=== PATIENT | female | born 1990 | race American Indian/Alaskan Native ===

== ENCOUNTER 2021-08-06 10:21 | Emergency (ER) | payer BC ==
[2021-08-06] MEDS ORDERED: KETOROLAC 30 MG/1 ML INJ IV ONE (10:54)
[2021-08-06] MEDS ORDERED: HYDROmorphone 1 MG/1 ML INJ IV ONE (10:54)
[2021-08-06] MEDS ORDERED: ETOMIDATE 20 MG/10 ML INJ IV ONE (11:32)
[2021-08-06] MEDS ORDERED: HYDROmorphone 1 MG/1 ML INJ ONE (11:40)
--- NOTE | 2021-08-06 11:45 | XRay Report ---
RIGHT ANKLE 3 VIEWS INDICATION / CLINICAL INFORMATION: angle injury COMPARISON: None available. FINDINGS: BONES / JOINT(S): Spiral fracture involving the distal fibula. The tibia is dislocated medially. The medial malleolus and talus are intact. No significant arthritis. SOFT TISSUES: Underlying soft tissue swelling. ADDITIONAL FINDINGS: None. Signer Name: William Hairston MD Signed: 08/06/2021 11:40 AM Workstation Name: [id number]
[2021-08-06] MEDS ORDERED: SODIUM CHLORIDE 0.9% 1000 ML 1,000 ML ONE (12:15)
[2021-08-06 12:35] VITALS: BP 154/79
--- NOTE | 2021-08-06 12:49 | Emergency Department Report ---
ED Extremity Problem HPI - General Chief complaint: Extremity Injury, Lower Stated complaint: RT ANKLE PAIN Time Seen by Provider: 08/06/21 10:53 Source: patient Mode of arrival: Stretcher Limitations: No Limitations - History of Present Illness Initial comments: Patient is a 30-year-old F Georgian female who was walking her dog this morning and some wet grass and she slipped and fell. Patient injured her right ankle. There was some obvious deformity present she was unable to bear any weight afterwards. Patient states the pain is a 10 out of 10 in severity. Worse with any movement of the leg better with rest. Denies any other injury at this time. Patient received 100 a fentanyl for morphine prior to arrival. Patient still in significant pain. Severity scale (0 -10): 10 - Related Data Previous Rx's Medication Instructions Recorded Last Taken Type hydrOXYzine PAMOATE [Vistaril] 25 mg PO Q6HR PRN #12 capsule 05/14/20 Unknown Rx HYDROcodone/APAP 5-325 [Clarkia 1 each PO Q6HR PRN #14 tablet 08/06/21 Unknown Rx 5/325] Ketorolac [Toradol] 10 mg PO Q6H PRN #20 tablet 08/06/21 Unknown Rx methOCARBAMOL [Robaxin TAB] 500 mg PO Q6H PRN #14 tablet 08/06/21 Unknown Rx Allergies Allergy/AdvReac Type Severity Reaction Status Date / Time No Known Allergies Allergy Unverified 05/14/20 07:42 ED Review of Systems ROS: Stated complaint: RT ANKLE PAIN Other details as noted in HPI Comment: All other systems reviewed and negative ED Past Medical Hx - Past Medical History Previous Medical History?: No - Surgical History Past Surgical History?: No - Social History Smoking Status: Unknown if ever smoked Substance Use Type: None - Medications Home Medications: Home Medications Medication Instructions Recorded Confirmed Last Taken Type hydrOXYzine PAMOATE [Vistaril] 25 mg PO Q6HR PRN #12 capsule 05/14/20 Unknown Rx HYDROcodone/APAP 5-325 [Clarkia 1 each PO Q6HR PRN #14 tablet 08/06/21 Unknown Rx 5/325] Ketorolac [Toradol] 10 mg PO Q6H PRN #20 tablet 08/06/21 Unknown Rx methOCARBAMOL [Robaxin TAB] 500 mg PO Q6H PRN #14 tablet 08/06/21 Unknown Rx ED Physical Exam - General Limitations: No Limitations General appearance: alert, in distress (Secondary to pain) - Head Head exam: Present: atraumatic, normocephalic - Eye Eye exam: Present: normal appearance - ENT ENT exam: Present: mucous membranes moist - Neck Neck exam: Present: normal inspection - Respiratory Respiratory exam: Present: normal lung sounds bilaterally. Absent: respiratory distress, wheezes, rales, rhonchi - Cardiovascular Cardiovascular Exam: Present: regular rate, normal rhythm. Absent: systolic murmur, diastolic murmur, rubs, gallop - GI/Abdominal GI/Abdominal exam: Present: soft, normal bowel sounds. Absent: distended, tenderness - Extremities Exam Extremities exam: Present: normal inspection - Expanded Lower Extremity Exam Right Upper Leg exam: Present: normal inspection, full ROM Knee exam: Present: normal inspection, full ROM Ankle exam: Present: tenderness, deformity - Back Exam Back exam: Present: normal inspection - Neurological Exam Neurological exam: Present: alert, oriented X3 - Psychiatric Psychiatric exam: Present: normal affect, normal mood - Skin Skin exam: Present: warm, dry, intact, normal color. Absent: rash ED Course Vital Signs 08/06/21 08/06/21 12:18 12:26 Temperature [ 98 F Pre-Procedure] Pulse Rate [ 92 H Intra-Procedure ] Pulse Rate [ 75 Post-Procedure] Pulse Rate [Pre 86 -Procedure] Respiratory 16 Rate [Intra- Procedure] Respiratory 16 Rate [Post- Procedure] Respiratory 16 Rate [Pre- Procedure] Blood Pressure 152/88 [Intra- Procedure] Blood Pressure 154/79 [Post-Procedure ] Blood Pressure 142/84 [Pre-Procedure] O2 Sat by Pulse 100 Oximetry O2 Sat by Pulse 100 Oximetry [ Intra-Procedure ] O2 Sat by Pulse 100 Oximetry [Post -Procedure] O2 Sat by Pulse 100 Oximetry [Pre- Procedure] - Moderate Sedation Indications: fracture/dislocation redu ASA Class: II Mallampati Airway Score: 2 Preparation: school bus monitor applied, pulse oximeter, capnometry used, supplemental O2 applied, suction/airway equipment at bedside, IV secured IV Etomidate Dose (mgs): 6 Complications: none Patient Tolerated Procedure: well - Orthopedic Joint Reduction Joint #1 Consent Obtained: written consent Time Out Performed: Yes Side: right Joint Reduction Location: ankle Analgesia: moderate sedation Shoulder Technique Used (if applicable): other (jazmín's used to lift the foot and ankle self reducued) Technique Used: direct manipulation Post-Reduction Neuro Exam: intact Post-Reduction Vascular Exam: intact Post Reduction X-Ray Obtained: No Splint Applied: Yes Patient Tolerated Procedure: well - Orthopedic Splinting/Casting Injury #1 Side: left Lower Extremity Injury Location: ankle Lower Extremity Immobilizer: posterior splint, stirrup splint Other Orthopedic Equipment: crutches ED Medical Decision Making - Radiology Data Patient: FADI BARRAZA MR#: [id number] : 1990 Acct:[id number] Age/Sex: 30 / F ADM Date: 08/06/21 Loc: ED Attending Dr: Ordering Physician: CHINO FRANCIS MD Date of Service: 08/06/21 Procedure(s): XR ankle 2V RT Accession Number(s): [id number] cc: CHINO FRANCIS MD Fluoro Time In Minutes: RIGHT ANKLE 3 VIEWS INDICATION / CLINICAL INFORMATION: angle injury COMPARISON: None available. FINDINGS: BONES / JOINT(S): Spiral fracture involving the distal fibula. The tibia is dislocated medially. The medial malleolus and talus are intact. No significant arthritis. SOFT TISSUES: Underlying soft tissue swelling. ADDITIONAL FINDINGS: None. Signer Name: William Hairston MD Signed: 08/06/2021 11:40 AM Workstation Name: [id number] - Medical Decision Making Patient is a 30-year-old F [place]ian female with a significant fracture dislocation to the right ankle. Images been sent to Dr. Zuniga with orthopedics and he will see the patient clinic. The fracture dislocation was reduced. Patient tolerated procedure well. Patient be discharged home with medication was pain control and fracture care. Critical care attestation.: If time is entered above; I have spent that time in minutes in the direct care of this critically ill patient, excluding procedure time. ED Disposition Clinical Impression: Fibula fracture Qualifiers: Encounter type: initial encounter Fibula location: distal Fracture type: closed Fracture morphology: torus Laterality: right Qualified Code(s): S82.821A - Torus fracture of lower end of right fibula, initial encounter for closed fracture Ankle dislocation Qualifiers: Encounter type: initial encounter Laterality: right Qualified Code(s): S93.04XA - Dislocation of right ankle joint, initial encounter Disposition: HOME / SELF CARE / HOMELESS Is pt being admited?: No Does the pt Need Aspirin: No Condition: Stable Instructions: Cast or Splint Care, Adult, [id number], Tibial and Fibular Fractures, Ankle Dislocation Referrals: LAMAR ZUNIGA MD [Staff Physician] - 3-5 Days Time of Disposition: 12:53
== END 2021-08-06 13:20 | disposition home or self-care (01) ==
LOC: ED 10:21
DX: S82.831A Other fracture of upper and lower end of right fibula, initial encounter for closed fracture (principal); S93.04XA Dislocation of right ankle joint, initial encounter; W19.XXXA Unspecified fall, initial encounter; Y93.89 Activity, other specified; Y92.89 Other specified places as the place of occurrence of the external cause; Y99.8 Other external cause status
CPT/HCPCS: 27840; 73600; 96374; 99284; J1170; J7030

== ENCOUNTER 2021-08-15 06:05 | Day surgery (SDC) | payer BC ==
[2021-08-15] MEDS ORDERED: LACTATED RINGERS 1,000 ML ONE (06:31)
[2021-08-15] MEDS ORDERED: BACTERIOSTATIC SODIUM CHLORIDE 0.9% 30 ML VIAL INFILTRATI ONE (06:31)
[2021-08-15] MEDS ORDERED: fentaNYL 100 MCG/2 ML INJ ONE (07:27)
[2021-08-15] MEDS ORDERED: LIDOCAINE MPF (2%) 20 MG/1 ML VIAL 5 ML ONE (07:27)
[2021-08-15] MEDS ORDERED: propofoL 200 MG/20 ML VIAL IV ONE (07:27)
--- NOTE | 2021-08-15 07:33 | Anesthesia Day of Surgery ---
Anesthesia Day of Surgery - Day of Surgery Patient Examined: Yes Patient H&P Reviewed: Yes Patient is NPO: Yes
--- NOTE | 2021-08-15 07:34 | Anesthesia Consultation ---
Anesthesia Consult and Med Hx Date of service: 08/15/21 - Airway Anesthetic Teeth Evaluation: Good ROM Head & Neck: Adequate Mental/Hyoid Distance: Adequate Mallampati Class: Class III Intubation Access Assessment: Probably Good - Pre-Operative Health Status ASA Pre-Surgery Classification: ASA2 Proposed Anesthetic Plan: General Nerve Block: Pop - Pulmonary Hx Smoking: No Hx Sleep Apnea: No (BIB PRE SCREEN LOW RISK) - Cardiovascular System Hx Hypertension: No - Central Nervous System Hx Psychiatric Problems: Yes (Anxiety/Panic d/o) - Hematic Hx Anemia: No Hx Sickle Cell Disease: No - Other Systems Hx Cancer: No Hx Obesity: Yes
[2021-08-15] MEDS ORDERED: dexAMETHasone 4 MG/ML VIAL ONE ×2 (07:36→10:51)
[2021-08-15] MEDS ORDERED: BUPIVACAINE/PF (0.5%) 5 MG/1 ML 30 ML VIAL INFILTRATI ONE (07:36)
[2021-08-15] MEDS ORDERED: MIDAZOLAM 5 MG/5 ML INJ MDV IV ONE (07:41)
[2021-08-15] MEDS ORDERED: MIDAZOLAM 2 MG/2 ML INJ IV NR (08:00)
[2021-08-15] MEDS ORDERED: ceFAZolin/STERILE WATER 2 GM/20 ML SYRINGE IV NR (08:00)
[2021-08-15] MEDS ORDERED: SODIUM CHLORIDE 0.9% IRRIG SOLN 2000 ML IR ONE (08:06)
[2021-08-15] MEDS ORDERED: PHENYLEPHRINE/NS 1,000 MCG/10 ML SYRINGE (OR USE) IV ONE (08:18)
[2021-08-15] MEDS ORDERED: fentaNYL 100 MCG/2 ML INJ IV SCH (08:30)
[2021-08-15] MEDS ORDERED: ONDANSETRON 4 MG/2 ML INJ IV PRN (08:30)
[2021-08-15] MEDS ORDERED: HYDROmorphone 1 MG/1 ML INJ IV PRN (08:30)
[2021-08-15] MEDS ORDERED: LACTATED RINGERS 1,000 ML IV SCH (08:30)
[2021-08-15] MEDS ORDERED: ePHEDrine SULFATE 50 MG/1 ML INJ ONE (08:57)
[2021-08-15] MEDS ORDERED: ONDANSETRON 4 MG/2 ML INJ ONE (09:14)
[2021-08-15] MEDS ORDERED: dexAMETHasone 20 MG/5 ML VIAL ONE (09:47)
--- NOTE | 2021-08-15 09:59 | Procedure Note ---
Date of procedure: 08/15/21 Pre-op diagnosis: Esthela Fracture-dislocation right ankle Post-op diagnosis: same Procedure: Open reduction internal fixation right distal fibula with repair of syndesmosis Procedure The patient was brought to the OR after being given a femoral nerve block for postop pain management, she was placed on the table as a supine position following induction with MAC anesthesia patient's right lower extremity was prepped and draped in the usual sterile manner a timeout procedure was done to identify the patient and the correct operative site. The leg was exsanguinated followed by inflation of the pneumatic tourniquet to 300 mm Hg. a lateral incision was made along the distal fibula distally and down sharply through skin and subcutaneous down to periosteum the fracture site was identified following manipulation of the fracture fragments a bone clamp was used to stabilize next a interfrag screw was used to stabilize the fracture. A 8-hole one third semitubular plate was was applied to the distal fibula under C-arm visualization the leg was stabilize with screws of various lengths including cortical and cancellus screws AP and lateral views were obtained on the table, next the ZipTight syndesmosis device was inserted using 3.2 drill bit through all four cortices followed by deployment of the fixation device. A mortise view showed good reduction at the syndesmosis and showed good reduction of the fracture and placement of the hardware next the wound was copiously irrigated with saline solution and was closed in a standard routine fashion for subcutaneous dressings were applied as well as a well-padded posterior mold patient tolerated the procedure complications Anesthesia: MAC, regional Surgeon: LAMAR GARAY (Brian Kincaid, 1st assist) Estimated blood loss: minimal Pathology: none Condition: stable Disposition: PACU
[2021-08-15] MEDS: HYDROmorphone 1 MG/1 ML INJ IV PRN ×3 (10:10→10:40)
--- NOTE | 2021-08-15 10:11 | XRay Report ---
RIGHT ANKLE 3 VIEWS 0854 INDICATION: Right Fibula fracture, Ankle dislocation Fluoroscopy time 0.2 minutes COMPARISON: 08/06/2021 FINDINGS: 3 intraoperative views were obtained showing internal fixation and reduction of the previou s dislocation. Satisfactory reduction is noted. There is mild widening of the space between the media l malleolus and the talus. Plate and screws transfix the distal fibular fracture with good alignment seen. A small pin is noted in the distal tibial metaphysis. Signer Name: Edmond Ingram MD Signed: 08/15/2021 10:07 AM Workstation Name: [id number]
[2021-08-15] MEDS ORDERED: BUPIVACAINE/PF (0.25%) 2.5 MG/ML 30 ML VIAL INFILTRATI ONE (10:51)
[2021-08-15] MEDS ORDERED: MIDAZOLAM 2 MG/2 ML INJ IV ONE (12:00)
[2021-08-15 16:27] VITALS: BP 132/76
== END 2021-08-15 13:35 | disposition home or self-care (01) ==
LOC: OR 06:05
PROVIDERS: ATTEND Orthopaedic Surgery
DX: S93.04XA Dislocation of right ankle joint, initial encounter (principal); S82.831A Other fracture of upper and lower end of right fibula, initial encounter for closed fracture; M25.571 Pain in right ankle and joints of right foot; F41.9 Anxiety disorder, unspecified; F32.9 Major depressive disorder, single episode, unspecified; Z79.899 Other long term (current) drug therapy; Z98.890 Other specified postprocedural states; Z68.38 Body mass index [BMI] 38.0-38.9, adult; Z20.822 Contact with and (suspected) exposure to COVID-19; X58.XXXA Exposure to other specified factors, initial encounter; Y93.89 Activity, other specified; Y92.89 Other specified places as the place of occurrence of the external cause; Y99.8 Other external cause status
CPT/HCPCS: 27792; 27829; 36415; 64450; 73600; 84703; A4217; C1713; J0690; J1100; J1170; J2250; J2370; J2405; J2704; J3010; J7120; U0003

== ENCOUNTER 2021-09-30 10:55 | Outpatient (CLI) | payer BC ==
--- NOTE | 2021-09-30 12:18 | XRay Report ---
RIGHT ANKLE 3 VIEWS INDICATION: OTHER FRACTURE OF UPPER LOWER FIBULA,. COMPARISON: 08/06/2021. 08/15/2021. IMPRESSION: Internal fixation of the distal fibular fracture is unchanged in position and alignment s parish the operative films dated 08/15/2021. Lateral subluxation of the talus has been reduced and is no w anatomic in alignment. No new acute process is appreciated. Signer Name: Colin South Jr, MD Signed: 09/30/2021 12:14 PM Workstation Name: [id number]
== END 2021-09-30 10:56 | disposition home or self-care (01) ==
LOC: XRAY 10:55
PROVIDERS: ATTEND Orthopaedic Surgery
DX: S82.831A Other fracture of upper and lower end of right fibula, initial encounter for closed fracture (principal); S93.04XD Dislocation of right ankle joint, subsequent encounter; X58.XXXD Exposure to other specified factors, subsequent encounter; X58.XXXA Exposure to other specified factors, initial encounter; Y93.89 Activity, other specified; Y92.89 Other specified places as the place of occurrence of the external cause; Y99.8 Other external cause status

== ENCOUNTER 2021-11-08 09:19 | Outpatient (CLI) | payer BC ==
--- NOTE | 2021-11-08 10:21 | XRay Report ---
RIGHT ANKLE 3 VIEWS INDICATION: OTHER FRACTURE OF UPPER AND LOWER END OF RIGHT FIBULA. COMPARISON: 09/30/2021 IMPRESSION: The internally fixated distal right fibular fracture is unchanged in position and alignm ent since 09/30/2021. Fracture lines appear healed or nearly healed. Within the distal tibial metaphys is there appears to be a retained segment of the screw along the medial border. This is unchanged. Ov erlying this retained fragment there is new soft tissue ulceration measuring up to 1.7 cm in diameter . No evidence for periostitis or bony destruction to suggest osteomyelitis on x-ray. There is mild di ffuse soft tissue edema or swelling. No significant DJD. Signer Name: Colin South Jr, MD Signed: 11/08/2021 10:17 AM Workstation Name: [id number]
== END 2021-11-08 09:20 | disposition home or self-care (01) ==
LOC: XRAY 09:19
PROVIDERS: ATTEND Orthopaedic Surgery
DX: S82.831D Other fracture of upper and lower end of right fibula, subsequent encounter for closed fracture with routine healing (principal); S93.04XD Dislocation of right ankle joint, subsequent encounter; X58.XXXD Exposure to other specified factors, subsequent encounter